=== PATIENT | male | born 1955 | race Two or more races ===

== ENCOUNTER 2023-12-06 17:35 | Inpatient (IN) | payer MEDICAID, OTHER ==
[~2023-12-06] VITALS: Ht 172.7 cm; Wt 87.5 kg
[2023-12-06 18:40] VITALS: O2SAT 94
[2023-12-06 19:28] LABS: Basophils # (auto) 0 10 ^3/uL (0-0.2); Basophils % (auto) 0.3 % (0.0-2.0); Eosinophils # (auto) 0.2 10 ^3/uL (0-0.8); Eosinophils % (auto) 2.1 % (0.0-7.0); Hematocrit 44.7 % (41.0-53.0); Hemoglobin 15.1 g/dL (13.5-17.5); Lymphocytes # (auto) 1.7 10 ^3/uL (0.4-5.4); Mean Corpuscular Hemoglobin 30.3 pg (28.0-32.0); Mean Corpuscular Hgb Conc. 33.9 g/dL (32.0-36.0); Mean Corpuscular Volume 89.5 fL (80.0-100.0); Monocytes # (auto) 0.7 10 ^3/uL (0-1.3); Monocytes % (auto) 6.6 % (0.0-12.0); Neutrophils # (auto) 7.5 10 ^3/uL (1.6-8.6); Nucleated Red Blood Cells % 0.1 %; Red Blood Cells 4.99 10^6/uL (4.5-5.90); Red Cell Distribution Width 14.9 % (11.8-14.3); White Blood Cell 10.2 10^3/uL (4.4-10.8)
[2023-12-06 19:34] LABS: Chloride 122 mmol/L (98-107); Sodium 156 mmol/L (136-145)
[2023-12-06 19:35] LABS: Anion Gap 10 (5-15); Calcium 9.4 mg/dL (8.7-10.4); Carbon Dioxide 24 mmol/L (20-30)
[2023-12-06 19:40] LABS: BUN/Creatinine Ratio 26.2 (10.0-20.0); Blood Urea Nitrogen 27 mg/dL (9-23); Glucose 108 mg/dL (74-106)
[2023-12-06 20:00] VITALS: PULSE 102; RESP 18; O2SAT 96
[2023-12-06] MEDS: SODIUM CHLORIDE 0.9% 1,000 ML IV ONE (20:09)
[2023-12-06] MEDS ORDERED: HYDROmorphone HCL 2 MG/ML VL/or syr IV PRN (20:45)
[2023-12-06] MEDS ORDERED: ONDANSETRON HCL 4 MG/2 ML VIAL IV PRN (20:45)
[2023-12-06] MEDS ORDERED: HYDROcodone-ACET 5/325MG TAB PO PRN (20:45)
[2023-12-06] MEDS ORDERED: ACETAMINOPHEN 325 MG TAB PO PRN (20:45)
[2023-12-06] MEDS: ceFAZolin 1GM/50ML 50 ML IV SCH (21:23)
[2023-12-06 21:29] LABS: Chloride 122 mmol/L (98-107); Potassium 3.9 mmol/L (3.5-5.1); Sodium 155 mmol/L (136-145)
[2023-12-06 21:30] LABS: Anion Gap 9 (5-15); Carbon Dioxide 24 mmol/L (20-30)
[2023-12-06 21:31] LABS: Calcium 9.4 mg/dL (8.7-10.4)
[2023-12-06 21:35] LABS: Glucose 113 mg/dL (74-106)
[2023-12-06 21:36] LABS: BUN/Creatinine Ratio 20.8 (10.0-20.0); Blood Urea Nitrogen 21 mg/dL (9-23)
[2023-12-06] MEDS: SOD CHL 0.45% 1,000 ML IV ONE (21:40)
[2023-12-06] MEDS: SODIUM CHLOR 0.9% PF (SALINE LOCK) 10ML VIAL/SYR IV SCH (22:05)
[2023-12-06] MEDS: ACYCLOVIR 400 MG TAB PO SCH (22:15)
[2023-12-06] MEDS: LORazepam 2MG/ML-1ML VIAL IM PRN (23:20)
[2023-12-07 06:08] LABS: Anion Gap 8 (5-15); Carbon Dioxide 24 mmol/L (20-30); Chloride 123 mmol/L (98-107); Potassium 3.7 mmol/L (3.5-5.1); Sodium 155 mmol/L (136-145)
[2023-12-07 06:10] LABS: Calcium 9.3 mg/dL (8.7-10.4)
[2023-12-07 06:14] LABS: Blood Urea Nitrogen 21 mg/dL (9-23); Glucose 129 mg/dL (74-106)
[2023-12-07 08:05] VITALS: PULSE 72; RESP 16; O2SAT 96
[2023-12-07] MEDS: ENOXAPARIN SOD 40 MG/0.4 ML SYRINGE SC SCH (12:22)
[2023-12-07 13:35] LABS: Chloride 122 mmol/L (98-107); Potassium 4.3 mmol/L (3.5-5.1); Sodium 152 mmol/L (136-145)
[2023-12-07 13:36] LABS: Anion Gap 12 (5-15); Carbon Dioxide 18 mmol/L (20-30)
[2023-12-07 13:37] LABS: Calcium 9.2 mg/dL (8.7-10.4)
[2023-12-07 13:41] LABS: Blood Urea Nitrogen 18 mg/dL (9-23); Glucose 110 mg/dL (74-106)
[2023-12-07] MEDS: LACTATED RINGER'S 1,000 ML IV SCH (16:05)
[2023-12-07 19:45] VITALS: PULSE 85; RESP 18; O2SAT 97
[2023-12-08 19:30] VITALS: PULSE 80; RESP 18; O2SAT 95
[2023-12-09 09:00] VITALS: BP 126/78; PULSE 74; RESP 18; TEMP 98.4; O2SAT 97
[2023-12-09 12:00] VITALS: BP 127/72; PULSE 69; RESP 18; TEMP 97.9; O2SAT 96
[2023-12-09] MEDS: DOXYCYCLINE 100 MG TAB/CAP PO SCH (21:55)
[2023-12-10 09:00] VITALS: BP 118/70; PULSE 66; RESP 18; TEMP 97.3; O2SAT 95
[2023-12-10 12:02] VITALS: BP 106/61; PULSE 68; RESP 17; TEMP 36.3; O2SAT 95
[2023-12-16 06:42] LABS: Vitamin D 25-Hydroxy 24 ng/mL (.); Vitamin D-2 25-Hydroxy <1.0 ng/mL (.); Vitamin D-3 25-Hydroxy 24 ng/mL (.)
== END 2023-12-10 12:30 | disposition hospice, inpatient (51) | DRG 426 ==
LOC: EDBD 17:35 → ER 17:44 → OVERFLOW 20:45 → CENTRAL 12-08 20:45
PROVIDERS: ADMIT Internal Medicine; ATTEND Nurse Practitioner Acute Care
DX: E87.0 Hyperosmolality and hypernatremia (principal); G93.41 Metabolic encephalopathy; I50.9 Heart failure, unspecified; L03.818 Cellulitis of other sites; Z51.5 Encounter for palliative care; B02.9 Zoster without complications; E86.0 Dehydration; Z91.199 Patient's noncompliance with other medical treatment and regimen due to unspecified reason; Z89.512 Acquired absence of left leg below knee
CPT/HCPCS: 36415; 70450; 80048; 82306; 82607; 83930; 85025; G0378